=== PATIENT | male | born 2000 | race Caucasian/White ===

== ENCOUNTER 2024-07-26 17:10 | Emergency (ER) | payer BC, SELFPAY ==
[2024-07-26 17:12] VITALS: BP 131/82
[2024-07-26] MEDS: ZOFRAN ODT (ORALLY DISINTEGRATING) 4 MG PO (17:20)
[2024-07-26 17:27] LABS: % Basophils 0.2 % (0-2); % Eosinophils 0.1 % (0-6); % Immature Granulocytes 0.3 % (0-0.5); % Lymphocytes 3.1 % (20.5-51.1); % Monocytes 4.5 % (1.7-9.3); % Neutrophils 91.8 % (42.2-75.2); Absolute Lymphocytes 0.4 10^3/uL (1.2-3.4); Absolute Monocytes 0.5 10^3/uL (0.1-0.6); Absolute Neutrophils 11.2 10^3/uL (1.4-6.5); Hematocrit 43.6 % (39.0-52.0); Hemoglobin 15.2 g/dL (13.0-18.0); Mean Corp Hgb Conc. 34.9 g/dL (33.0-37.0); Mean Corpuscular Hgb 31.5 pg (27.0-31.0); Mean Corpuscular Volume 90.3 fL (80.0-94.0); Mean Platelet Volume 9.2 fL (7.4-10.4); Nucleated Red Blood Cells % 0 % (-); Platelet Count 291 10^3/uL (130-400); Red Blood Cell Count 4.83 10^6/uL (4.70-6.10); Red Cell Dist. Width 11.9 % (11.5-14.5); White Blood Cell Count 12.1 10^3/uL (4.8-10.8)
[2024-07-26 17:39] LABS: ALT (SGPT) 32 U/L (0-50); AST (SGOT) 28 U/L (17-59); Albumin 5.1 g/dl (3.5-5.0); Alkaline Phosphatase 57 U/L (38-126); Blood Urea Nitrogen 16 mg/dl (9-20); Calcium 9.5 mg/dl (8.4-10.2); Carbon Dioxide 26 mmol/L (22-30); Chloride 100 mmol/L (98-107); Glucose 119 mg/dl (70-99); Lipase 81 U/L (23-300); Sodium 139 mmol/L (135-145); Total Bilirubin 4.1 mg/dl (0.2-1.3); Total Protein 7.8 g/dl (6.3-8.2); eGFR > 60.00
--- NOTE | 2024-07-26 20:05 | ED.GENMED ---
History of Present Illness
<HEMALATHA Rice - Last Filed: 07/27/24 03:31>
General
Chief Complaint: Abdominal Symptoms
Source: patient
Exam Limitations: none
Time Seen by Provider: 07/26/24 19:57
History of Present Illness
History of Present Illness:
This is a 24 year old male that comes in with c/o vomiting and diarrhea. States that he got up this morning and started with vomiting and chills. States that he has diarrhea. States that he has had vomiting and diarrhea all day. States that he felt
lightheaded and abd pain. Denies any fever, chills, chest pain, SOB, headache, urinary burning.
Past History
<HEMALATHA Rice - Last Filed: 07/27/24 03:31>
Past History
ED Past Medical History: Other (Migraine); Negative Asthma, HTN, Hypercholesterolemia or NIDDM
ED Past Surgical History: None
Social History
Tobacco: Non-smoker
Alcohol: Occasional
Personal: Single
Living: with family
Review of Systems
<HEMALATHA Rice - Last Filed: 07/27/24 03:31>
Review of Systems
All Other Systems: ROS reviewed and negative except as documented in HPI and ROS
Constitutional: Reports no symptoms; Denies fever or chills
EENT: Reports no symptoms
Respiratory: Reports no symptoms; Denies cough or trouble breathing
Cardiac: Reports no symptoms; Denies chest pain
ABD/GI: Reports abdominal pain, nausea, vomiting and diarrhea
: Reports no symptoms; Denies dysuria, frequency or urgency
Musculoskeletal: Reports no symptoms
Skin: Reports no symptoms
Neurological: Reports other (Lightheaded); Denies headache
Psychiatric: Reports no symptoms
Phy Exam
<HEMALATHA Rice - Last Filed: 07/27/24 03:31>
General Physical Exam
General Presentation: well appearing and no apparent distress
General age: appears stated age
General Skin: warm and dry
General Habitus: normal
General Mental: alert
General Hydration: dry mucous membranes
ENT Exam
ENT Exam: TM's normal, pharynx normal and neck supple
Eye Exam
Eye Exam: EOMI
Cardiovascular Exam
Cardiovascular Exam: no edema, no murmur, normal peripheral pulses and tachycardia
Pulmonary Exam
Pulmonary Exam: lungs clear, no respiratory distress, no rales, chest non tender, no crackles, no rhonchi, no wheezing and no cough
Gastrointestinal Exam
Gastrointestinal Exam: normal bowel sounds, non tender, soft, no organomegaly, no pulsatile mass and non distended
Musculoskeletal Exam
Musculoskeletal Exam: full ROM and no edema
Skin Exam
Skin Exam: normal color, warm/dry, no rash and no petechia
Psychiatric Exam
Psychiatric Exam: normal mood/affect
Course
<HEMALATHA Rice - Last Filed: 07/27/24 03:31>
Orders/Labs/Results
Orders:
Orders
07/26/24 17:18
Ondansetron Orally Disint [Zofran Odt (Orally Disintegrating)] 4 mg .ROUTE .[facility]
07/26/24 17:19
CMP [Comprehensive Metabolic Panel] Urgent
Complete Blood Count/With Diff Urgent
Direct Bilirubin Urgent
Comment: ADD ON
Lipase Urgent
07/26/24 17:20
Ondansetron Orally Disint [Zofran Odt (Orally Disintegrating)] 4 mg PO NOW STA
07/26/24 20:04
0.9% Sodium Chloride 1000 ml [Nss] 1,000 ml IV BOLUS
Ondansetron Injectable [Zofran] 4 mg IV NOW STA
07/26/24 20:05
Dicyclomine HCl [Bentyl] 20 mg IM NOW STA
07/26/24 20:36
Add On- LAB Urgent
Tests Added?: indirect and direct bili
07/26/24 21:34
Metoclopramide [Reglan] 10 mg IV NOW STA
Abnormal Lab Results
07/26/24
17:19
WBC 12.1 H 10^3/uL
(4.8-10.8)
MCH 31.5 H pg
(27.0-31.0)
Absolute Neuts (auto) 11.2 H 10^3/uL
(1.4-6.5)
Absolute Lymphs (auto) 0.4 L 10^3/uL
(1.2-3.4)
Neutrophils % 91.8 H %
(42.2-75.2)
Lymphocytes % 3.1 L %
(20.5-51.1)
Glucose 119 H mg/dl
(70-99)
Total Bilirubin 4.1 H mg/dl
(0.2-1.3)
Direct Bilirubin 0.9 H mg/dl
(0.0-0.4)
Albumin 5.1 H g/dl
(3.5-5.0)
07/26/24 17:19
07/26/24 17:19
Leukocytosis, hyperglycemia. Total andrés elevation. Lipase normal at 81, Direct andrés 0.9 slightly elevated.
Vital Signs
Initial and Last Documented VS:
Initial Vital Signs
Temp Pulse Resp BP Pulse Ox
97.7 F 125 18 131/82 98
07/26/24 17:12 07/26/24 17:12 07/26/24 17:12 07/26/24 17:12 07/26/24 17:12
Last Documented Vital Signs
Temp Pulse Resp BP Pulse Ox
97.7 F 92 18 113/68 99
07/26/24 17:12 07/26/24 22:18 07/26/24 22:18 07/26/24 22:18 07/26/24 22:18
<Miki Jaramillo, DO - Last Filed: 07/26/24 20:36>
Orders/Labs/Results
Orders:
Orders
07/26/24 17:18
Ondansetron Orally Disint [Zofran Odt (Orally Disintegrating)] 4 mg .ROUTE .[facility]
07/26/24 17:19
CMP [Comprehensive Metabolic Panel] Urgent
Complete Blood Count/With Diff Urgent
Direct Bilirubin Urgent
Comment: ADD ON
Lipase Urgent
07/26/24 17:20
Ondansetron Orally Disint [Zofran Odt (Orally Disintegrating)] 4 mg PO NOW STA
07/26/24 20:04
0.9% Sodium Chloride 1000 ml [Nss] 1,000 ml IV BOLUS
Ondansetron Injectable [Zofran] 4 mg IV NOW STA
07/26/24 20:05
Dicyclomine HCl [Bentyl] 20 mg IM NOW STA
07/26/24 20:36
Add On- LAB Urgent
Tests Added?: indirect and direct bili
07/26/24 21:34
Metoclopramide [Reglan] 10 mg IV NOW STA
Abnormal Lab Results
07/26/24
17:19
WBC 12.1 H 10^3/uL
(4.8-10.8)
MCH 31.5 H pg
(27.0-31.0)
Absolute Neuts (auto) 11.2 H 10^3/uL
(1.4-6.5)
Absolute Lymphs (auto) 0.4 L 10^3/uL
(1.2-3.4)
Neutrophils % 91.8 H %
(42.2-75.2)
Lymphocytes % 3.1 L %
(20.5-51.1)
Glucose 119 H mg/dl
(70-99)
Total Bilirubin 4.1 H mg/dl
(0.2-1.3)
Direct Bilirubin 0.9 H mg/dl
(0.0-0.4)
Albumin 5.1 H g/dl
(3.5-5.0)
07/26/24 17:19
07/26/24 17:19
Vital Signs
Initial and Last Documented VS:
Initial Vital Signs
Temp Pulse Resp BP Pulse Ox
97.7 F 125 18 131/82 98
07/26/24 17:12 07/26/24 17:12 07/26/24 17:12 07/26/24 17:12 07/26/24 17:12
Last Documented Vital Signs
Temp Pulse Resp BP Pulse Ox
97.7 F 92 18 113/68 99
07/26/24 17:12 07/26/24 22:18 07/26/24 22:18 07/26/24 22:18 07/26/24 22:18
<HEMALATHA Rice - Last Filed: 07/27/24 03:31>
MDM/Problems Addressed
Differential Diagnosis Includes:
GI viral syndrome,
MDM/Problems Addressed:
This is a 24 year old male that comes in with c/o vomiting and diarrhea that started this morning.
Will check labs, give IV fluids, Zofran and Bentyl IM. Will recheck.
Back into see patient. Patient states that he is feeling better. Patient taking oral fluids. Explained to patient that this is most likely the Viral GI syndrome. Patient to stay away from milk and milk products as long as the diarrhea continues. A
prescription for Zofran has been sent to the Pharmacy to help with nausea and vomiting. Please increase your water intake to 8-8oz glasses daily. 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
he can have his family doctor watch his Total andrés. Patient will be discharged home. .
Nursing went to Discharge patient and patient is now having dry heaves. Will get Ultrasound and medicate further for Nausea/vomiting.
When nursing went back into the room. The patient stated that he did not want any more medication that he felt better and did not want the US. Patient was discharged.
Chronic conditions affecting care:
NA
Acute Exacerbation and/or Progression of Chronic Illness:
NA
<HEMALATHA Rice - Last Filed: 07/27/24 03:31>
*Pulse Oximetry
Patient hypoxic: no
*EKG
Interpreted by ED Provider?: NA
Rate: EKG- N/A
*External Auditor Interpretation
Rate: External Auditor- N/A
*Critical Care Note
Total Time (30-74mins, 75-104mins- exclusive of procedures): Not Applicable
ED Attending Note
<HEMALATHA Rice - Last Filed: 07/27/24 03:31>
-
Portions of this chart may have been created with voice recognition software.� Occasional wrong word or��sound alike� substitutions may have occurred due to the inherent limitations of voice recognition software.
<Miki Jaramillo DO - Last Filed: 07/26/24 20:36>
ED Attending Note
Patient seen and examined by attending physician: Yes
I performed the substantive portion of visit, reviewed & personally made and approve the management plan that is documented in note by myself or LEIGH.: Yes
ED Attending Note:
Minimal leukocytosis. The patient presents with vomiting and diarrhea. IV fluids are given. Total bili is elevated�I have added on direct/indirect. Zofran given orally and via IV.
Discharge Plan
Departure
Patient Disposition: Home (Routine Discharge)
Date of Disposition: 07/26/24
Time of Disposition: 21:19
Patient with high blood pressure during this ER visit?: Yes
Condition: Good
Covid-19: Not Applicable
Discharge Problem:
Nausea & vomiting, Diarrhea
Instructions: Diarrhea in teens and adults, Nausea and Vomiting, Adult (DC), BLOOD PRESSURE
Prescriptions:
New
ondansetron 4 mg tablet,disintegrating
4 mg PO Q8H PRN (Reason: nausea and vomiting) Qty: 7 0RF
Referrals:
Sam Jordan MD [Family Provider] - Call in 1-3 days for appt
Activity Restrictions/Additional Instructions:
As discussed, your blood work shows a slight elevation of your White blood cells and your Total andrés. This is most likely the Viral GI syndrome. Please stay away from milk and milk products as long as you have diarrhea as this is hard for the gut to
digest. Please increase your water intake to 8-8oz glasses daily. A prescription for Zofran has been sent to your pharmacy to help with nausea and vomiting. Follow up with the family doctor for recheck. IF YOU HAVE ANY OTHER CONCERNS PLEASE RETURN
TO THE EMERGENCY ROOM.
Interventions
Interventions:
*Risk Screen - Suicide Last Done: 07/26/24 17:12
*General Assessment Last Done: 07/26/24 17:12
*ED COVID-19 Vaccine History Last Done: 07/26/24 22:18
*Nursing Disposition Last Done: 07/26/24 22:19
NK-Xiiqfu-Oxbfbrhgab Assessment Last Done: 07/26/24 22:18
Discharge Date and Time
Discharge Date/Time: 07/26/24 22:21
Print Language: CITIZEN [place]
[2024-07-26] MEDS: NSS 1000 IV (20:17)
[2024-07-26] MEDS: BENTYL 20 MG IM (20:17)
[2024-07-26] MEDS: ZOFRAN 4 MG IV (20:17)
[2024-07-26 21:07] LABS: Direct Bilirubin 0.9 mg/dl (0.0-0.4)
[2024-07-26 22:18] VITALS: BP 113/68
== END 2024-07-26 22:21 | disposition home or self-care (01) ==
LOC: EMR 17:10
PROVIDERS: Emergency Medicine; EMERGENCY PHYSICIAN Emergency Medicine; FAMILY PHYSICIAN Family Medicine
DX: R11.2 Nausea with vomiting, unspecified (principal); R19.7 Diarrhea, unspecified
CPT/HCPCS: 99283; 96374; 96372; 96361; 80053; 82248; 83690; 85025